=== PATIENT | female | born 1955 ===

== ENCOUNTER 2022-09-17 16:54 | Emergency (ER) | payer OTHER ==
[~2022-09-17] VITALS: Ht 172.7 cm; Wt 65.8 kg
== END 2022-09-17 20:22 | disposition home or self-care (01) ==
LOC: ER 16:54
DX: M25.561 Pain in right knee (principal); M25.562 Pain in left knee; M79.671 Pain in right foot; Z88.8 Allergy status to other drugs, medicaments and biological substances